=== PATIENT | female | born 1950 | race Caucasian/White ===

== ENCOUNTER 2016-11-12 10:40 | Outpatient (RCR) | payer OTHER | END 2016-11-29 | disposition home or self-care (01) | LOC: PTY 10:40 | DX: M51.9 Unspecified thoracic, thoracolumbar and lumbosacral intervertebral disc disorder (principal) | CPT/HCPCS: 97110; 97140; 97162; G0283 ==

== ENCOUNTER 2016-12-01 10:45 | Outpatient (RCR) | payer OTHER | END 2016-12-30 | disposition home or self-care (01) | LOC: PTY 10:45 | DX: M51.9 Unspecified thoracic, thoracolumbar and lumbosacral intervertebral disc disorder (principal) | CPT/HCPCS: 97035; 97110; 97140; G0283 ==

== ENCOUNTER 2017-01-04 10:55 | Outpatient (RCR) | payer OTHER | END 2017-01-29 | disposition home or self-care (01) | LOC: PTY 10:55 | DX: M51.9 Unspecified thoracic, thoracolumbar and lumbosacral intervertebral disc disorder (principal) | CPT/HCPCS: 97110; 97140; G0283 ==